=== PATIENT | male | born 1950 | race Caucasian/White ===

== ENCOUNTER 2016-07-13 13:18 | Inpatient (IN) | payer MEDICARE, OTHER ==
[~2016-07-13] VITALS: Ht 182.9 cm; Wt 170.6 kg
[2016-07-13] MEDS ORDERED: LORTAB 5-325 M1 EACH PO (14:16)
[2016-07-13] MEDS ORDERED: CLOPIDOGREL75 MG PO (14:17)
[2016-07-13] MEDS ORDERED: FLONASE 0.05% N16 GM (14:21)
[2016-07-13] MEDS ORDERED: FUROSEMIDE20 MG PO (14:21)
[2016-07-13] MEDS ORDERED: NEURONTIN 400400 MG PO (14:21)
[2016-07-13] MEDS ORDERED: LISINOPRIL20 MG PO (14:22)
[2016-07-13] MEDS ORDERED: CLARITIN 10MG T10 MG PO (14:22)
[2016-07-13] MEDS ORDERED: NIFEDIPINE ER30 M1 PO (14:23)
[2016-07-13] MEDS ORDERED: SINGULAIR10 MG PO (14:23)
[2016-07-13] MEDS ORDERED: TOPROL XL50 MG PO (14:23)
[2016-07-13] MEDS ORDERED: PROAIR HFA8.5 GM INH (14:24)
[2016-07-13] MEDS ORDERED: POTASSIUM CHLO10 MEQ PO (14:24)
[2016-07-13] MEDS ORDERED: OMEPRAZOLE40 MG PO (14:24)
[2016-07-13] MEDS ORDERED: RANEXA500 MG PO (14:25)
[2016-07-13] MEDS ORDERED: SENNA LAX8.6 MG PO (14:26)
[2016-07-13] MEDS ORDERED: SIMVASTATIN40 MG PO (14:26)
[2016-07-13] MEDS ORDERED: ZANTAC 150 MG150 MG PO (14:26)
[2016-07-13] MEDS ORDERED: SPIRIVA HANDIH18 MCG INH (14:29)
[2016-07-13] MEDS ORDERED: NICOTINE PATCH1 EACH TD (14:29)
[2016-07-13] MEDS ORDERED: DULERA 100 MCG8.8 GM INH (14:30)
[2016-07-13 15:41] LABS: HEMOGLOBIN 17.1 gm/dl (14.0-17.5); RED BLOOD COUNT 5.33 M/UL (4.20-5.50); WHITE BLOOD COUNT 9.7 K/UL (4.5-11.0)
[2016-07-13 16:00] LABS: BUN/CREATININE RATIO 23 (0-10)
[2016-07-14 03:41] LABS: HEMOGLOBIN 15.1 gm/dl (14.0-17.5); RED BLOOD COUNT 4.73 M/UL (4.20-5.50); WHITE BLOOD COUNT 10.5 K/UL (4.5-11.0)
[2016-07-14 03:57] LABS: BUN/CREATININE RATIO 30 (0-10)
[2016-07-15] MEDS ORDERED: DIAMOX 250 MG250 MG PO (16:57)
== END 2016-07-15 18:32 | disposition home or self-care (01) | DRG 189 ==
LOC: CCU 13:33 → MED SURG 4 13:33
PROVIDERS: ADMIT Emergency Medicine
DX: J96.01 Acute respiratory failure with hypoxia (principal); J44.1 Chronic obstructive pulmonary disease with (acute) exacerbation; J44.0 Chronic obstructive pulmonary disease with (acute) lower respiratory infection; E66.2 Morbid (severe) obesity with alveolar hypoventilation; Z68.43 Body mass index [BMI] 50.0-59.9, adult; J96.02 Acute respiratory failure with hypercapnia; J20.9 Acute bronchitis, unspecified; I10 Essential (primary) hypertension; E78.5 Hyperlipidemia, unspecified; I25.10 Atherosclerotic heart disease of native coronary artery without angina pectoris; Z95.5 Presence of coronary angioplasty implant and graft; K21.9 Gastro-esophageal reflux disease without esophagitis; F17.210 Nicotine dependence, cigarettes, uncomplicated; K27.9 Peptic ulcer, site unspecified, unspecified as acute or chronic, without hemorrhage or perforation; Z79.891 Long term (current) use of opiate analgesic; Z79.51 Long term (current) use of inhaled steroids; Z79.899 Other long term (current) drug therapy; Z79.02 Long term (current) use of antithrombotics/antiplatelets; Z80.3 Family history of malignant neoplasm of breast; Z82.49 Family history of ischemic heart disease and other diseases of the circulatory system
CPT/HCPCS: 36415; 36600; 71010; 80048; 82803; 82962; 83036; 85025; 85027; 93005; 94640; 94660; 94664; C9113; J0456; J1120; J1650; J2930; J7030